=== PATIENT | female | born 1995 | race Caucasian/White ===

== ENCOUNTER → 2025-02-26 | Outpatient (CLI) | payer OTHER ==
[2025-02-26 11:51] LABS: Trichomonas vaginalis (AMP) NOT DETECTED (NEGATIVE)
[2025-02-26 12:01] LABS: PLATELET COUNT, AUTOMATED 277 10^3/uL (150-450)
[2025-02-26 12:15] LABS: GC DNA AMPLIFICATION NEGATIVE (NEGATIVE)
[2025-02-26 13:23] LABS: HEPATITIS C VIRUS ABY INDEX 0.05 INDEX (<0.8); HIV 1&2 SCREEN NEGATIVE (NEGATIVE)
== END ==
LOC: M PLALAB 08:34
PROVIDERS: ATTEND Nurse Practitioner Family
DX: Z34.80 Encounter for supervision of other normal pregnancy, unspecified trimester (principal)

== ENCOUNTER → 2025-05-14 | Outpatient (CLI) | payer OTHER | LOC: M WHC 13:08 | PROVIDERS: ATTEND Advanced Practice Midwife | DX: Z34.82 Encounter for supervision of other normal pregnancy, second trimester (principal) ==

== ENCOUNTER → 2025-06-18 | Outpatient (CLI) | payer OTHER | LOC: M WHC 13:55 | PROVIDERS: ATTEND Nurse Practitioner Family | DX: O36.5930 Maternal care for other known or suspected poor fetal growth, third trimester, not applicable or unspecified (principal); Z3A.29 29 weeks gestation of pregnancy ==

== ENCOUNTER → 2025-06-25 | Outpatient (CLI) | payer OTHER ==
[2025-06-25 13:46] LABS: PLATELET COUNT, AUTOMATED 308 10^3/uL (150-450)
[2025-06-25 13:49] LABS: GLUCOSE CHALLENGE TEST 1 HOUR 85 MG/DL (LESS THAN 140)
[2025-06-25 14:24] LABS: HIV 1&2 SCREEN NEGATIVE (NEGATIVE)
[2025-06-25 14:32] LABS: HEPATITIS C VIRUS ABY INDEX < 0.02 INDEX (<0.8)
[2025-06-25 14:53] LABS: Trichomonas vaginalis (AMP) NOT DETECTED (NEGATIVE)
[2025-06-25 15:16] LABS: GC DNA AMPLIFICATION NEGATIVE (NEGATIVE)
[2025-06-26 07:10] LABS: RUBELLA IgG FOR TORCH EVAL 0.96 index (Immune >0.99); RUBELLA IgM FOR TORCH EVAL <20.0 AU/mL (0.0-19.9)
[2025-06-29 13:37] LABS: HSV 1 IGG TYPE SPECIFIC < 0.90 index (<0.90); HSV 2 IGG TYPE SPECIFIC < 0.90 index (<0.90)
[2025-06-29 13:52] LABS: CYTOMEGALOVIRUS ANTIBODY IGG < 0.60 U/mL (<0.60); CYTOMEGALOVIRUS IgM ANTIBODY < 30.00 AU/mL (<30.00)
[2025-06-29 14:08] LABS: HERPES ZOSTER, VARICELLA IgG < 1.00 S/CO (>=1.00)
[2025-06-29 18:23] LABS: HERPES ZOSTER, VARICELLA IgM <= 0.90 (<=0.90)
[2025-06-29 18:38] LABS: TOXOPLASMA IGM ANTIBODY < 8.00 AU/mL (<8.00)
== END ==
LOC: M PLALAB 09:11
PROVIDERS: ATTEND Nurse Practitioner Family
DX: O36.5920 Maternal care for other known or suspected poor fetal growth, second trimester, not applicable or unspecified (principal); Z3A.00 Weeks of gestation of pregnancy not specified

== ENCOUNTER → 2025-08-06 | Outpatient (CLI) | payer OTHER | LOC: M RAD 07:27 | PROVIDERS: ATTEND Nurse Practitioner Family | DX: O36.5930 Maternal care for other known or suspected poor fetal growth, third trimester, not applicable or unspecified (principal); Z3A.35 35 weeks gestation of pregnancy ==

== ENCOUNTER → 2025-08-10 | Outpatient (REF) | payer OTHER ==
[~2025-08-10] MED LIST: ACET32TAB PO; IBUP600T42 PO
== END ==
LOC: M SFHCWAGY 15:21
PROVIDERS: ATTEND Nurse Practitioner Family
DX: Z34.93 Encounter for supervision of normal pregnancy, unspecified, third trimester (principal); Z3A.36 36 weeks gestation of pregnancy